=== PATIENT | female | born 1940 | race Caucasian/White ===

== ENCOUNTER 2016-09-09 08:46 | Outpatient (CLI) | payer MEDICARE, OTHER ==
[~2016-09-09] VITALS: Ht 166.4 cm; Wt 63.5 kg
[~2016-09-09 08:46] MED LIST: ADVAIR 250/501 DISK INH; AMBIEN10 MG PO; AMOXICILLIN500 M1 PO; ASPIRIN81 MG PO; ATIVAN0.5 MG PO; BIAXIN 500 MG500 MG PO; CORDARONE200 MG PO; DEXILANT60 MG PO; ELIQUIS5 MG PO; HEMOCYTE PLUS C1 CAP PO; HYDROCODONE-APA1 TAB PO; IPRAT-ALBUT 0.5-3 ML UPD; K-DUR20 MEQ PO; LASIX40 MG PO; LEXAPRO20 MG PO; MUCINEX600 MG PO; MULTIPLE VITAMI1 TA1 PO; OXYGEN; PHENERGAN25 M1 PO; PLAVIX75 MG PO; PREDNISONE10 MG PO; PREDNISONE20 MG PO; PRILOSEC20 MG PO; ROBAXIN500 MG PO; SINGULAIR10 MG PO; STOOL SOFTENER240 MG PO; SYNTHROID25 MCG PO; TOPROL XL25 MG PO; ULTRACET TABLET1 TAB PO; VALIUM10 MG PO
[2016-09-09 09:31] VITALS: BP 135/65; Ht 166.4 cm; Wt 63.5 kg
[2016-09-09 09:35] LABS: HEMOGLOBIN 12.7 g/dL (12-16); MCH 33.2 pg (26.0-34.0); MCHC 33.4 g/dL (31.0-37.0); MCV 99.5 fL (80.0-100.0); MEAN PLATELET VOLUME 9.1 fL (7.4-10.4); PLATELET COUNT 265 10x3/uL (130-400); RBC 3.82 10x6/uL (4.00-5.40); WBC 7.3 10x3/uL (4.8-10.8)
[2016-09-09 09:45] LABS: APTT 30.8 SECONDS (22.8-39.4); INR 1.08 (0.85-1.17); PROTIME 13.8 SECONDS (11.6-15.0)
[2016-09-09 09:59] LABS: ANISOCYTOSIS OCC; EOSINOPHILS 3 % (0-7); LYMPHOCYTES 56 % (15-50); MONOCYTES 5 % (2-11); NEUTROPHILS 34 % (40-80); PLATELET ESTIMATE NORMAL
--- NOTE | 2016-09-09 18:37 | NUR ---
1230 PT O2 SAT 88 ON RA, PLACED ON O2 2 LNC, PT VERY DROWSY 1315 NO CHANGE FAMILY AT BEDSIDE TRYING TO WAKE PT , COOL TOWELL TO FACE STILL VERY DROWSY, DR HARMON INFORMED 1600 NO REAL CHANGE , 02 CHANGE TO [address] HARMON 1630 AWAKE AND TALKING, IV DC WITH CATHER TIP INTACT , 1700UP IN ROOM
[2016-09-10 12:14] LABS: FUNGUS STAIN Final report (())
[2016-09-10 18:08] LABS: ACID FAST SMEAR Negative (()); AFB SPECIMEN PROCESSING Concentration (())
== END 2016-09-09 17:15 | disposition home or self-care (01) ==
LOC: D.OPS 08:46
PROVIDERS: Internal Medicine Pulmonary Disease
DX: J18.9 Pneumonia, unspecified organism (principal); T17.890A Other foreign object in other parts of respiratory tract causing asphyxiation, initial encounter; I25.10 Atherosclerotic heart disease of native coronary artery without angina pectoris; I25.5 Ischemic cardiomyopathy; I11.0 Hypertensive heart disease with heart failure; I50.43 Acute on chronic combined systolic (congestive) and diastolic (congestive) heart failure; E78.5 Hyperlipidemia, unspecified; I82.409 Acute embolism and thrombosis of unspecified deep veins of unspecified lower extremity; D64.9 Anemia, unspecified; Z01.812 Encounter for preprocedural laboratory examination

== ENCOUNTER → 2016-11-01 18:11 | Outpatient (CLI) | payer MEDICARE, OTHER ==
[2016-09-09 09:31] VITALS: BMI 23.0
== END | disposition home or self-care (01) ==
LOC: D.MAMMO 09:45
DX: Z12.31 Encounter for screening mammogram for malignant neoplasm of breast (principal)

== ENCOUNTER → 2016-11-03 09:12 | Outpatient (CLI) | payer MEDICARE, OTHER ==
[2016-09-09 09:31] VITALS: BMI 23.0
== END | disposition home or self-care (01) ==
LOC: D.RT 09-17 09:00 → D.LAB 09-17 10:00 → D.RT 09:12
DX: J44.9 Chronic obstructive pulmonary disease, unspecified (principal)

== ENCOUNTER 2017-01-31 17:06 | Inpatient (IN) | payer MEDICARE, OTHER ==
[~2017-01-31] VITALS: Ht 166.4 cm; Wt 60.8 kg
--- NOTE | 2017-01-31 17:40 | NUR ---
RECEIVED TO ROOM 2207 VIA WC FROM DIRECT ADMIT. A/O X3. FAMILY AT BEDSIDE. SKIN IS INTACT WITHOUT REDNESS. IV SITED TO LEFT FOREARM WITH 20 GAUGE AFTER ONE ATTEMPT. DENIES NEEDS.
[2017-01-31] MEDS ORDERED: EFFEXOR37.5 MG PO (17:48)
[2017-01-31] MEDS ORDERED: VALIUM10 MG PO (17:49)
[2017-01-31] MEDS ORDERED: CYPROHEPTADINE H4 MG PO (17:50)
[2017-01-31 17:51] VITALS: BP 94/42; BMI 22.0
[2017-01-31] MEDS ORDERED: NORCO 7.5/325 T1 TA1 PO (17:51)
[2017-01-31 19:01] LABS: HEMATOCRIT 35.5 % (36.0-48.0); MCH 33.6 pg (26.0-34.0); MCHC 33.8 g/dL (31.0-37.0); MCV 99.4 fL (80.0-100.0); MEAN PLATELET VOLUME 9.2 fL (7.4-10.4); PLATELET COUNT 252 10x3/uL (130-400); RBC 3.57 10x6/uL (4.00-5.40); RDW 14.5 % (11.5-14.5); WBC 16.4 10x3/uL (4.8-10.8)
[2017-01-31 19:36] LABS: ALBUMIN 2.6 g/dL (3.4-5.0); ANION GAP 13.5 mmol/L (8-16); BILIRUBIN - TOTAL 0.96 mg/dL (0.2-1.3); CARBON DIOXIDE 28.2 mmol/L (21.0-32.0); POTASSIUM - SERUM 3.7 mmol/L (3.5-5.1); PROTEIN - SERUM 6.3 g/dL (6.4-8.2)
[2017-01-31 19:44] LABS: EOSINOPHILS 2 % (0-7); LYMPHOCYTES 27 % (15-50); MONOCYTES 4 % (2-11); NEUTROPHILS 56 % (40-80); PLATELET ESTIMATE NORMAL
[2017-01-31 19:49] LABS: CALCIUM 8.1 mg/dL (8.5-10.1); CREATININE - SERUM 1.2 mg/dL (0.6-1.3)
[2017-01-31 20:00] VITALS: BP 75/67
[2017-02-01 04:00] VITALS: BP 81/40
[2017-02-01 06:11] LABS: BASOPHILS 0.2 % (0-2); EOSINOPHILS 0.5 % (0-7); HEMATOCRIT 33.7 % (36.0-48.0); HEMOGLOBIN 11.3 g/dL (12-16); IMMATURE GRANULOCYTES 0.2 % (0-5); LYMPHOCYTES 26.1 % (15-50); MCH 33.4 pg (26.0-34.0); MCHC 33.5 g/dL (31.0-37.0); MCV 99.7 fL (80.0-100.0); MEAN PLATELET VOLUME 9.3 fL (7.4-10.4); MONOCYTES 6.9 % (2-11); NEUTROPHILS 66.1 % (40-80); PLATELET COUNT 251 10x3/uL (130-400); RBC 3.38 10x6/uL (4.00-5.40); RDW 14.7 % (11.5-14.5); WBC 13.1 10x3/uL (4.8-10.8)
--- NOTE | 2017-02-01 06:19 | NUR ---
ASSESSED PULMONARY STATUS. BILATERAL APICAL WHEEZES NOTED THROUGHOUT POSTERIOR ASPECTS OF AUSCULATATION. SPO2 94% EQUALATERAL EXCURSION NOTED ZERO S/S IMMEDIATE RESP DISTRESS.
[2017-02-01 06:37] LABS: ANION GAP 10.2 mmol/L (8-16); CALCIUM 8.3 mg/dL (8.5-10.1); CARBON DIOXIDE 29.5 mmol/L (21.0-32.0); CREATININE - SERUM 1.2 mg/dL (0.6-1.3); POTASSIUM - SERUM 3.7 mmol/L (3.5-5.1)
--- NOTE | 2017-02-01 07:30 | NUR ---
REPORT RECIEVED ASSUMED CARE. PATIEN TIN BED WITH IV INTACT. NO COMPLAINTS AT THIS TIME. CALL LIGHT WITHIN REACH.
[2017-02-01 09:27] VITALS: BP 97/44
[2017-02-01 13:08] VITALS: BP 98/55
[2017-02-01 13:29] VITALS: Ht 166.4 cm; Wt 60.8 kg
--- NOTE | 2017-02-01 16:45 | NUR ---
PATIENT RECIEVED IS. EXPLAINED HOW TO USE. VERBALIZED UNDERSTANDING. ALSO TELE PLACED AND BSCDS TO ROOM. STATED WOULD PUT THEM ON LATER BC PATIENT WANTS TO WALK TO BR. NO COMPLAINTS. FAMILY AT BEDSIDE. CALL LIGHT WITHIN REACH.
[2017-02-01 17:01] VITALS: BP 109/56
--- NOTE | 2017-02-01 17:24 | NUR ---
OT NOTE: PT COMPLETED BUE AROM EXS FOR INCREASED ENDURANCE. PT COMPLETED BED MOB WITH THE USE OF SIDE RAILS. THANK YOU. MIKAEL TOPETE/Liseth
--- NOTE | 2017-02-01 18:55 | NUR ---
PATIENT IN BED WITH IV INTACT. NO COMPLAINTS AT THIS TIME. FAMILY AT BEDSIDE. CALL LIGHT WITHIN REACH.
[2017-02-01 20:00] VITALS: BP 110/60
[2017-02-01 20:09] LABS: APPEARANCE CLEAR (CLEAR); BILIRUBIN NEGATIVE (NEGATIVE); COLOR YELLOW (YELLOW); GLUCOSE NEGATIVE (NEGATIVE); KETONE NEGATIVE (NEGATIVE); NITRITE NEGATIVE (NEGATIVE); PROTEIN NEGATIVE (NEGATIVE); UROBILINOGEN NORMAL (NORMAL)
--- NOTE | 2017-02-02 00:04 | NUR ---
194)REC'D. AT [facility]. OF SHIFT ASSISTED TO FRANKLYN RODRIGUEZ WELL.SPOUSE ASLEEP IN RECLINER 02 3L NC.SCD'S REAPPLIED.MONITOR SHOWING SR HR78. DENIES ANY DISCOMFORT AT PRESENT TIME. WILL CONTINUE TO MONITOR FOR ANY CHGES. IN RESP. STATUS AND FOLOOW CURRENT PLAN OF CARE
[2017-02-02 06:05] LABS: BASOPHILS 0 % (0-2); EOSINOPHILS 0 % (0-7); HEMATOCRIT 33.4 % (36.0-48.0); HEMOGLOBIN 11.3 g/dL (12-16); IMMATURE GRANULOCYTES 0.8 % (0-5); LYMPHOCYTES 19.7 % (15-50); MCH 33.6 pg (26.0-34.0); MCHC 33.8 g/dL (31.0-37.0); MCV 99.4 fL (80.0-100.0); MEAN PLATELET VOLUME 9.5 fL (7.4-10.4); MONOCYTES 1.5 % (2-11); PLATELET COUNT 275 10x3/uL (130-400); RBC 3.36 10x6/uL (4.00-5.40); RDW 14.4 % (11.5-14.5)
[2017-02-02 06:35] LABS: ALBUMIN 2.1 g/dL (3.4-5.0); ANION GAP 11.4 mmol/L (8-16); BILIRUBIN - TOTAL 0.26 mg/dL (0.2-1.3); CALCIUM 8.3 mg/dL (8.5-10.1); CARBON DIOXIDE 26.5 mmol/L (21.0-32.0); POTASSIUM - SERUM 3.9 mmol/L (3.5-5.1); PROTEIN - SERUM 6.6 g/dL (6.4-8.2)
--- NOTE | 2017-02-02 07:00 | NUR ---
REPORT RECEIVED, ASSUMED CARE OF PT. NO NEEDS VOICED AT THIS TIME.
[2017-02-02 08:04] VITALS: BP 115/54
--- NOTE | 2017-02-02 10:30 | NUR ---
OT NOTE: PT REPORTED FEELING BETTER TODAY. PERFORMED UE AND LE EXS WITH MINIMAL REST BREAKS. ABLE TO AMB TO BATHROOM; PERFORMED TOILETING INCLUDING DONNING/DOFFING BRIEF WITHOUT ASSIST; ABLE TO BRANT SOCKS WITHOUT ASSIST; TOILET HYGIENE INDEP. IN ROOM AMBULATION WITH USE OF IV POLE; INDEP WITH ALL BED MOB.
--- NOTE | 2017-02-02 11:38 | CN ---
PATIENT NAME:IFRAH HAIRSTON MEDICAL RECORD: [id number] : 41 LOCATION:[id number] ADMIT DATE: 01/31/17 ACCOUNT: [id number] CONSULTING PHYSICIAN: HUONG BROTHERS MD REFERRING PHYSICIAN: KAREN GRAHAM MD DATE OF CONSULTATION: 02/01/2017 CONSULT REQUESTING PHYSICIAN: Dr. Karen Graham. REASON FOR CONSULTATION: Pneumonia, acute exacerbation of chronic obstructive pulmonary disease. HISTORY OF PRESENT ILLNESS: Ms. Hairston is a 76-year-old female who has a history of COPD, home oxygen dependent. She still continues to smoke. According to the patient on Tuesday she was in the [employer]onism and she had a chill. When she came home, her pulse ox was 71. She was seen in the PCP office yesterday. There were questionable infiltrate in left upper lobe and the patient was admitted to the hospital for pneumonia. Now, she is feeling a little bit better. She has no further fever and chills. She has cough with white and yellow color sputum production. There is no hemoptysis. Denies any chest pain. She still continues to smoke half pack per day. REVIEW OF SYSTEMS: Mainly in the history of present illness. PAST MEDICAL HISTORY: 1. Coronary artery disease. 2. Congestive heart failure with the EF of 30%. 3. Hypertension. 4. Chronic obstructive pulmonary disease. 5. Chronic hypoxic respiratory failure. 6. History of PTE and DVT. She is status post IVC filter placement. 7. Gastroesophageal reflux disease. 8. Anxiety, depression. PAST SURGICAL HISTORY: 1. She has a hysterectomy. 2. She has a CABG. 3. She has multiple cardiac catheterizations and stent placement. ALLERGIES: She is allergic to HMG-COA REDUCTASE INHIBITORS. PRESENT MEDICATIONS: She is on Rocephin IV and Lasix. Her other medication is reviewed. PERSONAL SOCIAL HISTORY: The patient is . She lives with her . She still continues to smoke almost half pack per day. She is a nondrinker. FAMILY HISTORY: Significant for cardiovascular disease. PHYSICAL EXAMINATION: GENERAL: The patient is lying comfortably in bed. She is not in acute distress. VITAL SIGNS: The blood pressure is 97/44, pulse is 80, respiration is 18, temperature 97.7, and SpO2 is 96% on 3 liters nasal cannula. HEENT: Conjunctivae pink, sclerae nonicteric. CONSULT REPORT [id number] IFRAH HAIRSTON NECK: Neck is supple. No JVD. CHEST: The chest excursion is minimal on both sides. There are wheeze on forceful expiration. HEART: Rhythm regular, normal sound, no murmur. ABDOMEN: Soft. Bowel sounds present. No hepatosplenomegaly. RECTAL: Deferred. EXTREMITIES: No cyanosis, no clubbing, no pedal edema. SKIN: The skin is warm, normal turgor. CENTRAL NERVOUS SYSTEM: The patient is awake and alert. There are no obvious cranial nerve abnormality. The gait was not tested. LABORATORY DATA AND DIAGNOSTIC STUDIES: CBC: WBC 16.4, hemoglobin 12, hematocrit 35.5, the platelet count is 252. Chemistry: Sodium 137, potassium 3.7, BUN is 20, creatinine 1.2, and glucose 130. Chest radiograph, there is questionable infiltrate in the left upper lobe. IMPRESSION: 1. Acute exacerbation of chronic obstructive pulmonary disease secondary to tracheobronchitis, possible pneumonitis, left upper lobe consistent with a community-acquired pneumonia. 2. [id number] hypoxic respiratory failure. The patient's SpO2 at home was 71%. 3. Leukocytosis. 4. Tobacco dependence syndrome. 5. Congestive heart failure with a chronic systolic dysfunction, EF 30%. 6. Gastroesophageal reflux. 7. History of pulmonary thromboembolism. She is on Eliquis. She is also status post IVC filter placement. RECOMMENDATION: 1. Start methylprednisolone IV. Continue Rocephin. I will add doxycycline for atypical coverage. 2. Albuterol/ipratropium nebulizer. Start on Brovana and budesonide nebulizer. 3. Antitussive. 4. Follow up labs and chest radiograph. Dr. Graham, thank you for involving me in the care of Ms. Hairston. TRANSINT:[id number] Voice Confirmation ID: [id number] DOCUMENT ID: [id number] HUONG BROTHERS MD at 1138 CC: KAREN GRAHAM MD [id number] DICTATION DATE: 02/01/17 1422 CORRECTIONAL THERAPY DIRECTOR: 02/01/17 1511 ADM IN [place] [id number] [place] [address]
[2017-02-02 12:22] VITALS: BP 114/57
--- NOTE | 2017-02-02 13:06 | NUR ---
Patient Name: IFRAH HAIRSTON Admission Status: Urgent Accout number: [id number] Admission Date: 01-31-2017 : 1941 Admission Diagnosis:CHRONIC OBSTRUCTIVE PULMONARY DISEASE W (ACUTE) EXACERB Attending: SANTOS Current LOS: 2 Anticipated DC Date: Planned Disposition: Home Primary Insurance: MEDICARE A & B Discharge Planning Comments: CM met with patient to assess discharge planning needs, Patient lives independently at home with her (Ko), who will be her pick up driver home at discharge. She denies any HH or the need for one, does not have any steps in her home. She has a nebulizer and home o2 that she wears at night and PRN. CM will continue to follow and assist with discharge planning needs. PCP: [facility] [place] [address] [place] () [phone] Money Laundering Investigator: Evita Gregory * Is the patient Alert and Oriented? Yes 0 * How many steps to enter\exit or inside your home? 0 0 * PCP Chucky Curran APN 0 * [facility] [place] * Preadmission Environment Home with Family 0 * ADLs Independent 0 * Equipment Nebulizer Oxygen 0 * List name and contact numbers for known caregivers / representatives who currently or will assist patient after discharge: Ko () [phone] * Community resources currently utilized None 0 * Additional services required to return to the preadmission environment? No 0 * Can the patient safely return to the preadmission environment? Yes 0 * Has this patient been hospitalized within the prior 30 days at any hospital? No 0 Grand Total: 0
[2017-02-02 16:09] VITALS: BP 120/48
--- NOTE | 2017-02-02 17:45 | NUR ---
OT NOTE: PT COMPLETED BED MOBILITY WITH SPV. PT COMPLETED EOB SITTING WITH SPV. PT COMPLETED HYGIENE TASK WITH SET UP. THANK YOU, KRISTIN TOPETE
[2017-02-02 20:00] VITALS: BP 99/39
--- NOTE | 2017-02-03 00:11 | NUR ---
PT RESTING QUIETLY WITH EYES CLOSED. NO DISTRESS NOTED AT THIS TIME. CALL LIGHT IN REACH, WILL CONTINUE TO MONITOR.
[2017-02-03 04:00] VITALS: BP 120/55
[2017-02-03 05:16] LABS: BASOPHILS 0.1 % (0-2); EOSINOPHILS 0 % (0-7); HEMATOCRIT 31.3 % (36.0-48.0); HEMOGLOBIN 10.6 g/dL (12-16); IMMATURE GRANULOCYTES 0.7 % (0-5); LYMPHOCYTES 15.1 % (15-50); MCH 33.3 pg (26.0-34.0); MCHC 33.9 g/dL (31.0-37.0); MCV 98.4 fL (80.0-100.0); MEAN PLATELET VOLUME 9.3 fL (7.4-10.4); MONOCYTES 3.4 % (2-11); NEUTROPHILS 80.7 % (40-80); PLATELET COUNT 298 10x3/uL (130-400); RBC 3.18 10x6/uL (4.00-5.40); RDW 14.5 % (11.5-14.5)
[2017-02-03 05:18] LABS: WBC 14.5 10x3/uL (4.8-10.8)
[2017-02-03 05:39] LABS: ALBUMIN 2.2 g/dL (3.4-5.0); ANION GAP 10.5 mmol/L (8-16); BILIRUBIN - TOTAL 0.2 mg/dL (0.2-1.3); CARBON DIOXIDE 29.5 mmol/L (21.0-32.0); CREATININE - SERUM 1.1 mg/dL (0.6-1.3); PROTEIN - SERUM 6.1 g/dL (6.4-8.2)
[2017-02-03 08:16] VITALS: BP 111/50
--- NOTE | 2017-02-03 11:09 | NUR ---
OT NOTE: PT WAS ASLEEP BUT EASILY AROUSED. REPORTS THAT SHE FEELS GOOD AND REALLY WANTS TO GO HOME. THIS THERAPIST EXPLAINED TO HER THAT SHE WAS DOING WELL FUNCTIONALLY, BUT I DIDNT KNOW ABOUT ANYTHING ELSE, INCLUDING LABS OR IMAGING. PT CONT TO AMB TO AND FROM BATHROOM AND PERFORM TOILETING WITHOUT ASSIST; SITTING AND STANDING BALANCE ARE GOOD. REPORTS THAT SHE JUST FINISHED WALKING WITH PHYS THERAPY AND WAS ABLE TO WALK AROUND NURSES DESK. REPORTS THAT SHE WILL BE GOING HOME WITH . WILL CONT EXS WHILE PT IS IN ACUTE SETTING. SHY IGNACIO, OTR/L
[2017-02-03 12:14] VITALS: BP 120/49
[2017-02-03] MEDS ORDERED: NICODERM C1 PATCH .2 TRANSDERM (13:15)
[2017-02-03] MEDS ORDERED: ASPIRIN81 MG PO (13:15)
[2017-02-03] MEDS ORDERED: TESSALON PERLE100 MG PO (13:16)
[2017-02-03] MEDS ORDERED: PREDNISONE10 MG PO (13:16)
[2017-02-03] MEDS ORDERED: VIBRAMYCIN 100100 MG PO (13:17)
[2017-02-03] MEDS ORDERED: PULMICORT0.5 MG/21 UPD (13:18)
[2017-02-03] MEDS ORDERED: BROVANA15 MCG/2 M INH (13:18)
--- NOTE | 2017-02-03 13:52 | NUR ---
PATIENT DISCHARGING HOME TODAY WITH AT SIDE. PATIENT DENIES ANY NEED FOR HOME HELATH AND STATED THAT SHE HAS EVERYTHING SHE NEEDS. CM WILL CONTINUE TO FOLLOW AND ASSIST IF NEEDED
--- NOTE | 2017-02-03 14:00 | NUR ---
L FOREARM IV D/C'D AT THIS TIME, CATHETER INTACT, BLEED CONTROL, BANDAGE APPLIED.
[2017-02-03] MEDS ORDERED: OMNICEF300 MG PO (14:24)
[2017-02-03] MEDS ORDERED: FLORAJEN3 CAPS460 MG PO (14:25)
--- NOTE | 2017-02-03 16:33 | NUR ---
DISCHARGE INSTRUCTIONS GIVEN TO PT ORDERED, VERBALIZED UNDERSTANDING AND SIGNED. NO NEEDS VOICED AT THIS TIME.
--- NOTE | 2017-02-03 16:43 | NUR ---
PT DISCHARGED FROM FLOOR VIA WHEELCHAIR TO FAMILY VEHICLE, PERSONAL BELONGINGS WITH PT. NO NEEDS VOICED AT THIS TIME.
== END 2017-02-03 16:44 | disposition home or self-care (01) | DRG 193 ==
LOC: D.MS 17:06
PROVIDERS: ADMIT Family Medicine
DX: J18.1 Lobar pneumonia, unspecified organism (principal); J96.21 Acute and chronic respiratory failure with hypoxia; J44.1 Chronic obstructive pulmonary disease with (acute) exacerbation; F17.203 Nicotine dependence unspecified, with withdrawal; I42.8 Other cardiomyopathies; J44.0 Chronic obstructive pulmonary disease with (acute) lower respiratory infection; I50.42 Chronic combined systolic (congestive) and diastolic (congestive) heart failure; Z99.81 Dependence on supplemental oxygen; I11.0 Hypertensive heart disease with heart failure; Z86.711 Personal history of pulmonary embolism; Z86.718 Personal history of other venous thrombosis and embolism; K21.9 Gastro-esophageal reflux disease without esophagitis; F41.9 Anxiety disorder, unspecified; F32.9 Major depressive disorder, single episode, unspecified; D64.9 Anemia, unspecified; I25.5 Ischemic cardiomyopathy; E86.0 Dehydration; J20.9 Acute bronchitis, unspecified; I25.119 Atherosclerotic heart disease of native coronary artery with unspecified angina pectoris

== ENCOUNTER 2017-03-11 16:09 | Inpatient (IN) | payer MEDICARE, OTHER ==
[~2017-03-11] VITALS: Ht 166.4 cm; Wt 60.3 kg
[~2017-03-11 16:09] MED LIST changes: +BROVANA15 MCG/2 M INH; +CYPROHEPTADINE H4 MG PO; +EFFEXOR37.5 MG PO; +FLORAJEN3 CAPS460 MG PO; +NICODERM C1 PATCH .2 TRANSDERM; +NORCO 7.5/325 T1 TA1 PO; +OMNICEF300 MG PO; +PULMICORT0.5 MG/21 UPD; +TESSALON PERLE100 MG PO; +VIBRAMYCIN 100100 MG PO
[2017-03-11 17:03] LABS: BASOPHILS 0.1 % (0-2); EOSINOPHILS 0.1 % (0-7); HEMOGLOBIN 12.7 g/dL (12-16); IMMATURE GRANULOCYTES 0.4 % (0-5); LYMPHOCYTES 18.6 % (15-50); MCHC 33.4 g/dL (31.0-37.0); MCV 101.9 fL (80.0-100.0); MEAN PLATELET VOLUME 9.5 fL (7.4-10.4); MONOCYTES 6.5 % (2-11); NEUTROPHILS 74.3 % (40-80); PLATELET COUNT 244 10x3/uL (130-400); RBC 3.73 10x6/uL (4.00-5.40); RDW 14.9 % (11.5-14.5); WBC 14.2 10x3/uL (4.8-10.8)
[2017-03-11 17:18] LABS: ANION GAP 11.5 mmol/L (8-16); BILIRUBIN - TOTAL 0.65 mg/dL (0.2-1.3); CALCIUM 8.9 mg/dL (8.5-10.1); CARBON DIOXIDE 29.2 mmol/L (21.0-32.0); CREATININE - SERUM 1.5 mg/dL (0.6-1.3); POTASSIUM - SERUM 3.7 mmol/L (3.5-5.1); PROTEIN - SERUM 6.9 g/dL (6.4-8.2)
[2017-03-11 18:21] LABS: APPEARANCE CLEAR (CLEAR); BACTERIA FEW /hpf (NONE SEEN); BILIRUBIN NEGATIVE (NEGATIVE); COLOR YELLOW (YELLOW); EPITHELIAL CELLS 0-5 /hpf (0-5); GLUCOSE NEGATIVE (NEGATIVE); KETONE NEGATIVE (NEGATIVE); NITRITE NEGATIVE (NEGATIVE); PROTEIN TRACE mg/dL (NEGATIVE); RED CELLS - URINE OCC /hpf (0-5); SPECIFIC GRAVITY 1.015 (1.005-1.020); UROBILINOGEN NORMAL (NORMAL)
[2017-03-12] VITALS (7 sets, daily range): BP systolic 88–102; BP diastolic 42–56; Ht 166.4 cm; Wt 60.3 kg
[2017-03-12] MEDS ORDERED: EFFEXOR XR37.5 MG PO (04:57)
[2017-03-12] MEDS ORDERED: KLOR-CON 1010 MEQ PO (04:58)
[2017-03-12] MEDS ORDERED: AMBIEN10 MG PO (04:59)
[2017-03-12] MEDS ORDERED: CYPROHEPTADINE H4 MG PO ×2 (05:00→05:16)
[2017-03-12] MEDS ORDERED: COREG 3.1253.125 MG PO ×2 (05:01→05:02)
[2017-03-12] MEDS ORDERED: FUROSEMIDE20 MG PO (05:02)
[2017-03-12 05:49] LABS: BASOPHILS 0.1 % (0-2); EOSINOPHILS 0.1 % (0-7); HEMATOCRIT 33.9 % (36.0-48.0); HEMOGLOBIN 11.6 g/dL (12-16); IMMATURE GRANULOCYTES 0.5 % (0-5); LYMPHOCYTES 21.6 % (15-50); MCH 33.8 pg (26.0-34.0); MCHC 34.2 g/dL (31.0-37.0); MEAN PLATELET VOLUME 9.5 fL (7.4-10.4); MONOCYTES 6.2 % (2-11); NEUTROPHILS 71.5 % (40-80); PLATELET COUNT 216 10x3/uL (130-400); RBC 3.43 10x6/uL (4.00-5.40); RDW 14.8 % (11.5-14.5)
[2017-03-12 05:50] LABS: MCV 98.8 fL (80.0-100.0); WBC 18.4 10x3/uL (4.8-10.8)
[2017-03-12 06:38] LABS: ALBUMIN 2.7 g/dL (3.4-5.0); ANION GAP 12.4 mmol/L (8-16); BILIRUBIN - TOTAL 0.81 mg/dL (0.2-1.3); CALCIUM 8.6 mg/dL (8.5-10.1); CREATININE - SERUM 1.4 mg/dL (0.6-1.3); POTASSIUM - SERUM 3.4 mmol/L (3.5-5.1); PROTEIN - SERUM 6.6 g/dL (6.4-8.2)
[2017-03-13] VITALS: BP 100/49
[2017-03-13 04:00] VITALS: BP 96/46
[2017-03-13 09:37] VITALS: BP 105/53
[2017-03-13 11:59] VITALS: BP 100/58
[2017-03-13 16:12] VITALS: BP 145/46
[2017-03-13 20:00] VITALS: BP 93/45
[2017-03-14] VITALS: BP 89/57
[2017-03-14 04:00] VITALS: BP 102/48
[2017-03-14 06:57] LABS: BASOPHILS 0 % (0-2); EOSINOPHILS 0 % (0-7); HEMATOCRIT 32.8 % (36.0-48.0); HEMOGLOBIN 11.4 g/dL (12-16); IMMATURE GRANULOCYTES 0.5 % (0-5); LYMPHOCYTES 12.9 % (15-50); MCHC 34.8 g/dL (31.0-37.0); MCV 97.9 fL (80.0-100.0); MEAN PLATELET VOLUME 9.4 fL (7.4-10.4); MONOCYTES 2.7 % (2-11); NEUTROPHILS 83.9 % (40-80); PLATELET COUNT 247 10x3/uL (130-400); RBC 3.35 10x6/uL (4.00-5.40); RDW 14.6 % (11.5-14.5); WBC 16.8 10x3/uL (4.8-10.8)
[2017-03-14 08:09] VITALS: BP 117/53
[2017-03-14 10:52] LABS: ALBUMIN 2.7 g/dL (3.4-5.0); ANION GAP 14.2 mmol/L (8-16); BILIRUBIN - TOTAL 0.21 mg/dL (0.2-1.3); CALCIUM 9.1 mg/dL (8.5-10.1); CREATININE - SERUM 1.2 mg/dL (0.6-1.3); POTASSIUM - SERUM 4.2 mmol/L (3.5-5.1); PROTEIN - SERUM 6.7 g/dL (6.4-8.2)
[2017-03-14 12:03] VITALS: BP 109/42
[2017-03-14 16:10] VITALS: BP 100/48
[2017-03-14 19:00] VITALS: BP 141/58
[2017-03-15 04:00] VITALS: BP 120/53
[2017-03-15 04:37] LABS: BASOPHILS 0.1 % (0-2); EOSINOPHILS 0 % (0-7); HEMATOCRIT 34.2 % (36.0-48.0); HEMOGLOBIN 11.5 g/dL (12-16); IMMATURE GRANULOCYTES 0.8 % (0-5); LYMPHOCYTES 15.1 % (15-50); MCH 33.3 pg (26.0-34.0); MCHC 33.6 g/dL (31.0-37.0); MCV 99.1 fL (80.0-100.0); MEAN PLATELET VOLUME 9.5 fL (7.4-10.4); MONOCYTES 3.5 % (2-11); NEUTROPHILS 80.5 % (40-80); PLATELET COUNT 285 10x3/uL (130-400); RBC 3.45 10x6/uL (4.00-5.40); RDW 14.8 % (11.5-14.5); WBC 14.6 10x3/uL (4.8-10.8)
[2017-03-15 05:24] LABS: ALBUMIN 2.5 g/dL (3.4-5.0); ANION GAP 10.3 mmol/L (8-16); BILIRUBIN - TOTAL 0.3 mg/dL (0.2-1.3); CALCIUM 8.8 mg/dL (8.5-10.1); CARBON DIOXIDE 27.9 mmol/L (21.0-32.0); CREATININE - SERUM 1.3 mg/dL (0.6-1.3); POTASSIUM - SERUM 4.2 mmol/L (3.5-5.1); PROTEIN - SERUM 6.3 g/dL (6.4-8.2)
[2017-03-15 08:45] VITALS: BP 109/59
[2017-03-15] MEDS ORDERED: BROVANA15 MCG/2 M INH (11:37)
[2017-03-15] MEDS ORDERED: IPRAT-ALBUT 0.5-3 ML UPD (11:37)
[2017-03-15] MEDS ORDERED: BENZONATATE200 MG PO (11:38)
[2017-03-15] MEDS ORDERED: MUCINEX DM ER1 EAC1 PO (11:38)
[2017-03-15] MEDS ORDERED: SINGULAIR10 MG PO (11:38)
[2017-03-15] MEDS ORDERED: NICODERM C1 PATCH .2 TRANSDERM (11:38)
[2017-03-15] MEDS ORDERED: FLUTICASONE PRO16 GM NASAL (11:39)
[2017-03-15] MEDS ORDERED: PREDNISONE10 MG PO (11:39)
[2017-03-15] MEDS ORDERED: DALIRESP500 MCG PO (11:39)
[2017-03-15] MEDS ORDERED: VIBRAMYCIN 100100 MG PO (11:40)
[2017-03-15] MEDS ORDERED: OMNICEF300 MG PO (11:48)
[2017-03-15] MEDS ORDERED: FLORAJEN3 CAPS460 MG PO (11:48)
[2017-03-15 12:16] VITALS: BP 113/55
[2017-03-15] MEDS ORDERED: AUGMENTIN 875-11 TAB PO (14:26)
== END 2017-03-15 15:08 | disposition home or self-care (01) | DRG 193 ==
LOC: D.ER 16:09 → D.MS 20:40
PROVIDERS: Emergency Medicine; Family Medicine; Internal Medicine Pulmonary Disease
DX: J18.9 Pneumonia, unspecified organism (principal); J96.21 Acute and chronic respiratory failure with hypoxia; J44.1 Chronic obstructive pulmonary disease with (acute) exacerbation; J44.0 Chronic obstructive pulmonary disease with (acute) lower respiratory infection; I13.0 Hypertensive heart and chronic kidney disease with heart failure and stage 1 through stage 4 chronic kidney disease, or unspecified chronic kidney disease; I50.22 Chronic systolic (congestive) heart failure; F17.213 Nicotine dependence, cigarettes, with withdrawal; N18.3 Chronic kidney disease, stage 3 (moderate); D64.9 Anemia, unspecified; E78.5 Hyperlipidemia, unspecified; K21.9 Gastro-esophageal reflux disease without esophagitis; I71.4 Abdominal aortic aneurysm, without rupture

== ENCOUNTER → 2017-05-09 09:28 | Outpatient (CLI) | payer MEDICARE, OTHER ==
[2017-03-12 14:05] VITALS: BMI 21.8
[~2017-05-09 09:28] MED LIST changes: +AUGMENTIN 875-11 TAB PO; +BENZONATATE200 MG PO; +COREG 3.1253.125 MG PO; +DALIRESP500 MCG PO; +EFFEXOR XR37.5 MG PO; +FLUTICASONE PRO16 GM NASAL; +FUROSEMIDE20 MG PO; +KLOR-CON 1010 MEQ PO; +MUCINEX DM ER1 EAC1 PO
[2017-05-10 12:18] LABS: IMMUNOGLOBULIN A 153 mg/dL (64-422); IMMUNOGLOBULIN G 1281 mg/dL (700-1600); IMMUNOGLOBULIN M 83 mg/dL (26-217)
[2017-05-13 14:26] LABS: IMMUNOGLOBULIN E 14 IU/mL (0-100)
== END | disposition home or self-care (01) ==
LOC: D.LAB 05-05 09:00 → D.CT 05-05 09:30 → D.LAB 09:28
PROVIDERS: Internal Medicine Pulmonary Disease
DX: J18.9 Pneumonia, unspecified organism (principal)

== ENCOUNTER 2017-06-24 17:00 | Emergency (ER) | payer MEDICARE, OTHER ==
[2017-03-12 14:05] VITALS: BMI 21.8
[2017-06-24 17:35] LABS: HEMOGLOBIN 13.7 g/dL (12-16); MCH 33.3 pg (26.0-34.0); MCHC 35.1 g/dL (31.0-37.0); MCV 94.7 fL (80.0-100.0); MEAN PLATELET VOLUME 9.3 fL (7.4-10.4); PLATELET COUNT 255 10x3/uL (130-400); RBC 4.12 10x6/uL (4.00-5.40); RDW 13.6 % (11.5-14.5); WBC 9.1 10x3/uL (4.8-10.8)
[2017-06-24 17:44] LABS: INR 1.14 (0.85-1.17); PROTIME 14.2 SECONDS (11.6-15.0)
[2017-06-24 17:45] LABS: ALBUMIN 3.8 g/dL (3.4-5.0); ANION GAP 14.6 mmol/L (8-16); BILIRUBIN - TOTAL 0.28 mg/dL (0.2-1.3); CALCIUM 9.1 mg/dL (8.5-10.1); CREATININE - SERUM 1.2 mg/dL (0.6-1.3); POTASSIUM - SERUM 4.6 mmol/L (3.5-5.1); PROTEIN - SERUM 7.7 g/dL (6.4-8.2)
[2017-06-24 17:47] LABS: D-DIMER-QUANTITATIVE 0.55 ug/mLFEU (0.20-0.54)
[2017-06-24 18:18] LABS: LYMPHOCYTES 67 % (15-50); MONOCYTES 2 % (2-11); NEUTROPHILS 31 % (40-80); PLATELET ESTIMATE NORMAL
== END 2017-06-24 19:49 | disposition home or self-care (01) ==
LOC: D.ER 17:00
PROVIDERS: Emergency Medicine
DX: M62.838 Other muscle spasm (principal); I50.9 Heart failure, unspecified; F17.200 Nicotine dependence, unspecified, uncomplicated

== ENCOUNTER → 2017-07-08 12:18 | Outpatient (CLI) | payer MEDICARE, OTHER ==
[2017-03-12 14:05] VITALS: BMI 21.8
== END | disposition home or self-care (01) ==
LOC: D.CT 12:18
DX: I25.10 Atherosclerotic heart disease of native coronary artery without angina pectoris (principal)

== ENCOUNTER → 2017-08-08 10:12 | Outpatient (CLI) | payer MEDICARE, OTHER ==
[2017-03-12 14:05] VITALS: BMI 21.8
== END | disposition home or self-care (01) ==
LOC: D.CT 10:12
DX: I65.23 Occlusion and stenosis of bilateral carotid arteries (principal)

== ENCOUNTER → 2018-10-17 07:40 | Outpatient (CLI) | payer MEDICARE, OTHER ==
[2017-03-12 14:05] VITALS: BMI 21.8
== END | disposition home or self-care (01) ==
LOC: D.RT 07:40
PROVIDERS: ATTEND Internal Medicine Pulmonary Disease
DX: J44.9 Chronic obstructive pulmonary disease, unspecified (principal)

== ENCOUNTER → 2018-11-29 09:43 | Outpatient (CLI) | payer MEDICARE, OTHER ==
[2017-03-12 14:05] VITALS: BMI 21.8
== END | disposition home or self-care (01) ==
LOC: D.HCCECHO 09:43
PROVIDERS: ATTEND Internal Medicine Cardiovascular Disease
DX: I25.810 Atherosclerosis of coronary artery bypass graft(s) without angina pectoris (principal)